=== PATIENT | female | born 1960 | race Caucasian/White ===

== ENCOUNTER 2020-09-02 08:18 | Outpatient (CLI) | payer OTHER, SELFPAY | END 2020-09-02 08:19 | disposition home or self-care (01) | LOC: ANHCOVIDVC 08:18 | PROVIDERS: PCP Family Medicine | DX: Z23 Encounter for immunization (principal) | CPT/HCPCS: 0001A; 91300 ==

== ENCOUNTER 2020-09-23 08:20 | Outpatient (CLI) | payer OTHER, SELFPAY | END 2020-09-23 08:21 | LOC: ANHCOVIDVC 08:20 | PROVIDERS: PCP Family Medicine | DX: Z23 Encounter for immunization (principal) | CPT/HCPCS: 0002A; 91300 ==

== ENCOUNTER 2023-04-18 10:11 | Outpatient (CLI) | payer OTHER, SELFPAY ==
[2023-04-18 12:46] LABS: Basophils Percent Auto 0.3 % (0.2-1.2); Eosinophils Absolute Auto 0.1 K/mm3 (0-0.3); Eosinophils Percent Auto 1.9 % (0-4.4); Hematocrit 42.6 % (37.0-47.0); Hemoglobin 13.4 g/dL (12.0-15.0); Immature Granulocyte Absolute 0.01 K/mm3 (0.00-0.031); Immature Granulocyte Percent A 0.2 % (0-0.5); Lymphocytes Absolute Auto 1.98 K/mm3 (0.9-3.2); Lymphocytes Percent Auto 32.1 % (18.3-44.2); Mean Corpuscular HGB Conc 31.5 g/dl (32-36); Mean Corpuscular Hemoglobin 29.5 pg (26-34); Mean Corpuscular Volume 93.6 fl (80-100); Mean Platelet Volume 11.3 fl (7.4-10.4); Monocytes Absolute Auto 0.6 K/mm3 (0.1-0.6); Monocytes Percent Auto 9.6 % (2.6-8.5); Neutrophils Absolute Auto 3.4 K/mm3 (1.3-6.7); Neutrophils Percent Auto 55.9 % (45.5-73.1); Platelet Count Result 200 k/mm3 (150-375); Red Blood Count 4.55 M/mm3 (4.2-5.4); Red Cell Distribution Width 11.9 % (11.5-14.5); White Blood Count 6.2 K/mm3 (4.5-10.0)
[2023-04-18 14:44] LABS: Alanine Aminotransferase 42 U/L (6-35); Albumin Level 4.4 g/dL (3.5-5.1); Alkaline Phosphatase 90 U/L (38-126); Anion Gap 7 mmol/L (8-16); Aspartate Amino Transferase 54 U/L (14-36); Bilirubin,Total 0.9 mg/dL (0.2-1.3); Blood Urea Nitrogen 20 mg/dL (7-17); Calcium 9.3 mg/dL (8.4-10.2); Carbon Dioxide 29 mmol/L (22-30); Chloride 102 mmol/L (98-107); Cholesterol 242 mg/dL (0-200); Estimated Glomerular Filt Rate > 60; Glucose 106 mg/dL (65-110); HDL Direct 54 mg/dL; Sodium 138 mmol/L (137-145); Triglycerides 163 mg/dL (<150)
[2023-04-18 14:55] LABS: LDL Cholesterol Direct 142 mg/dL
[2023-04-18 15:50] LABS: Hemoglobin A1C 5.4 % (<5.7)
== END 2023-04-18 10:12 | disposition home or self-care (01) ==
LOC: ANHGOSHLAB 10:13
PROVIDERS: PCP Family Medicine; Visit Provider Nurse Practitioner
DX: E78.00 Pure hypercholesterolemia, unspecified (principal); F41.1 Generalized anxiety disorder; I10 Essential (primary) hypertension; R73.03 Prediabetes
CPT/HCPCS: 36415; 80053; 80061; 83036; 84443; 85025

== ENCOUNTER 2024-05-07 11:10 | Outpatient (CLI) | payer OTHER, SELFPAY ==
[2024-05-07 15:04] LABS: Alanine Aminotransferase 28 U/L (6-35); Albumin Level 4.4 g/dL (3.5-5.1); Alkaline Phosphatase 84 U/L (38-126); Anion Gap 6 mmol/L (4-12); Aspartate Amino Transferase 41 U/L (14-36); Bilirubin,Total 0.9 mg/dL (0.2-1.3); Blood Urea Nitrogen 17 mg/dL (7-17); Calcium 9.4 mg/dL (8.4-10.2); Carbon Dioxide 33 mmol/L (22-30); Chloride 102 mmol/L (98-107); Cholesterol 241 mg/dL (0-200); Estimated Glomerular Filt Rate > 60; Glucose 102 mg/dL (65-110); HDL Direct 54 mg/dL; Potassium 3.9 mmol/L (3.4-5.0); Sodium 141 mmol/L (137-145); Triglycerides 189 mg/dL (<150)
[2024-05-07 15:15] LABS: LDL Cholesterol Direct 141 mg/dL
[2024-05-07 15:44] LABS: Vitamin D 25 Hydroxy 31.5 ng/mL
[2024-05-07 15:55] LABS: Hematocrit 41.3 % (37.0-47.0); Hemoglobin 13.5 g/dL (12.0-15.0); Mean Corpuscular HGB Conc 32.7 g/dl (32-36); Mean Corpuscular Hemoglobin 30.3 pg (26-34); Mean Corpuscular Volume 92.8 fl (80-100); Mean Platelet Volume 11.3 fl (7.4-10.4); Platelet Count Result 212 k/mm3 (150-375); Red Blood Count 4.45 M/mm3 (4.2-5.4); Red Cell Distribution Width 12.3 % (11.5-14.5)
[2024-05-07 16:09] LABS: Hemoglobin A1C 5.7 % (<5.7)
== END 2024-05-07 11:11 | disposition home or self-care (01) ==
LOC: ANHGOSHLAB 11:11
PROVIDERS: PCP Family Medicine; Visit Provider Nurse Practitioner
DX: Z00.00 Encounter for general adult medical examination without abnormal findings (principal); E78.00 Pure hypercholesterolemia, unspecified; R73.03 Prediabetes; E55.9 Vitamin D deficiency, unspecified
CPT/HCPCS: 36415; 80053; 80061; 82306; 83036; 84443; 85027

== ENCOUNTER 2024-09-23 10:02 | Outpatient (CLI) | payer OTHER, SELFPAY ==
--- OUTSIDE RECORDS SUMMARY | 2024-09-23 11:09 | XMS_ITS | Clinical Summary ---
Author Organization [facility] Estefania BULLARD C Address [address] [place] [address] Phone Care Team Providers Care Telemarketing Representative Name Role Phone Clinic, Pcp Primary Care Provider Unavailabl e Allergies Active Allergy Reactions Criticality Noted Date Comments Sulfa (Sulfonamide Antibiotics) Nausea only,Fatigue Low 11/17/2021 Medications valsartan (DIOVAN) 80 mg tablet take 1 tablet by oral route every day 0 [address] (CYMBALTA) 20 mg capsule take 1 capsule by oral route 2 times every day 0 2 Active multivitamin (ONCE DAILY) tablet tablet take 1 tablet by oral route every day with food 0 2 Active mupirocin (BACTROBAN) 2 % ointmentIndicat ions:Cellulitis of face Apply topically 3 (three) times a day 22 g 2 Active Active Problems Problem Noted Date Diagnosed Date Migraine 03/29/2012 Overview (09/30/2016): Migraine Medical History Medical History Date Comments Hypertension Hypertension Social History Tobacco Use Types Packs/Day Years Used Date Smoking Tobacco: Never Smokeless Tobacco: Never Alcohol Use Standard Drinks/Week Comments Yes 0 (1 standard drink = 0.6 oz pur e alcohol) Comments No Sex and Gender Information Value Date Recorded Sex Assigned at Not on file Legal Sex Female 2:08 AM RN CARDIOLOGY Gender Identity Not on file Sexual Orientation Not on file Obstetrics History Last Filed Vital Signs Vital Sign Reading Time Taken Comments Blood Pressure 120/79 11/17/2021 10:58 AM CDT Pulse 103 11/17/2021 10:58 AM CDT Temperature 37.1 C (98.7 F) 11/17/2021 10:58 AM CDT Respiratory Rate 16 11/17/2021 10:58 AM CDT Oxygen Saturation 98% 11/17/2021 10:58 AM CDT Inhaled Oxygen Concentration - - Weight 66.4 kg (146 lb 4.8 oz) 11/17/2021 10:58 AM CDT Height 162.6 cm (5' 4 ) 11/17/2021 10:58 AM CDT Body Mass Index 25.11 11/17/2021 10:58 AM CDT Plan of Treatment Health Maintenance Due Date Last Done Comments Colon Cancer Screening-Colonoscopy 1959 Depression Screening 1959 Fall Risk Assessment 1959 Hepatitis C Screening 1959 Osteoporosis Screening-Bone Density Scan 1959 DTaP/Tdap/Td Vaccine (1 - Tdap) 1970 Hepatitis B Screening 1977 Pneumococcal vaccine 65+ (1 of 1 - PCV) 2009 Zoster Vaccine (1 of 2) 2009 Breast Cancer Screening-Mammogram 03/11/2020 03/11/2019, 09/23/2015, 04/21/2014, Additional history exists Cervical Cancer Screening 03/20/2020 03/20/2019, Covid-19 Vaccine (3 - 2023-2 5 season) 2024 09/23/2020, 09/02/2020 Influenza Vaccine (#1) 2024 08/29/2019, 2014 Well Visit 65+ 2024 03/20/2019 Procedures Procedure Name Priority Date/Time Associated Diagnosis Comments PAP IG, HPV-HR Routine 03/20/2019 10:49 AM CDT Screening for malignant neoplasm of cervix SCREENING MAMMOGRAM BILATERAL W ADAM Schedule Routine, Read Routine (OP Routine) 03/11/2019 10:54 AM CDT Encounter for screening mammogram for malignant neoplasm of breast from Last 3 Months or Most Recently Relevant to Health Maintenance Results * Pap IG, HPV-hr (03/20/2019 10:49 AM CDT) Clinical indication Comment [facility] - 01 Comment:NEGATIVE FOR INTRAEP ITHELIAL LESION OR MALIGNANCY. Specimen adequacy: Comment [facility] - 01 Comment: Satisfactory for evaluation. Endocervical component may not be distinguished in cases of atrophy. Clinician provided ICD10 Comment [facility] - Comment:Z12.4 Performed by Comment [facility] - 01 Comment:Franck Spivey, Cyto technologist (ASCP) . . [facility] - 01 Note: Comment [facility] - 01 Comment: The Pap smear is a screening test designed to aid in the detection of premalignant and malignant conditions of the uterine cervix. It is not a diagnostic procedure and should not be used as the sole means of detecting cervical cancer. Both false-positive and false-negative reports do occur. Test methodology Comment [facility] - Comment: This liquid based ThinPrep(R) pap test was screened with the use of an image guided system. HPV, high-risk Negative Negative [facility] Comment: This high-risk HPV test detects thirteen high-risk types (16/18/31/33/35/39/45/51/52/56/58/59/68) without differentiation. Cervical 03/20/2019 10:4 9 AM CDT 03/20/2019 Narrative [facility] - 03/22/2019 3:08 PM CDT Performed at: - [facility] [id number] Web Site Administrator: Noemi Dominguez MD, Phone: [phone] Performed at: - [facility] [id number] Web Site Administrator: Noemi Dominguez MD, Phone: [phone] Specimen Comment: Source.............Cervix;Endocervix Specimen Comment: Other..............Post Menopausal Specimen Comment: No. of containers..01 ThinPrep Vial us Keanu Villarreal MD LAB PATHOLOGY ORDERABLES Final [facility] - 01 [facility] 02 * Screening Mammogram Bilateral W Adam (03/11/2019 10:54 AM CDT) Anatomical Region Laterality Modality Breast Bilateral Mammography Narrative 03/14/2019 8:32 AM CDT Screening Mammogram Bilateral W Adam: 03/11/19 Clinical: Encounter for screening mammogram for malignant neoplasm of breast. Prior Study Comparisons: Comparison was made to the prior available relevant studies at the time of interpretation. Findings: Bilateral No significant masses, malignant type calcifications, skin thickening, nipple retraction, or significant lymphadenopathy is noted in either breast. The CAD review showed no significant findings. The breasts have scattered areas of fibroglandular density. The patient will be notified of results by letter. Impression: BI-RADS ATLAS category (overall): 1 Negative There is no mammographic evidence of malignancy. Routine Screening Mammogram in 1 Yr is recommended for bilateral Overall Assessment: 1 - Negative us Self Screening Mammogram IMG MAMMO PROCEDURES Fi nal Result from Last 3 Months or Most Recently Relevant to Health Maintenance Insurance [facility] PLUS [facility] CHO[facility] PLUS Care Teams Telemarketing Representative Relationship Specialty Start Date End Date Clinic, Pcp PCP - General 02/20/19
--- OUTSIDE RECORDS SUMMARY | 2024-09-23 11:09 | XMS_ITS | Referral Summary ---
Author Organization [facility] Estefania BULLARD C Address [address] [place] [address] Phone Care Team Providers Care Retail Agent Name Role Phone Clinic, Pcp Primary Care [...] Diagnosed Date Migraine 03/29/2012 Overview (09/30/2016): Migraine Social History Tobacco Use Types Packs/Day Years Used Date Smoking Tobacco: Never Smokeless Tobacco: Never Alcohol Use Standard Drinks/Week Comments Yes 0 (1 standard drink = 0.6 oz pur e alcohol) Comments No Sex and Gender Information Value Date Recorded Sex Assigned at Not on file Legal Sex Female 2:08 AM TAG MAKER Gender Identity Not on file Sexual Orientation Not on file Last Filed Vital Signs Vital Sign Reading [...] 11/17/2021 10:58 AM CDT Plan of Treatment Not on file Procedures Procedure Name Priority Date/Time Associated Diagnosis [...] atrophy. Clinician provided ICD10 Comment [facility] - 01 Comment:Z12.4 Performed by Comment [facility] - 01 [...] do occur. Test methodology Comment [facility] - 01 Comment: This liquid based ThinPrep(R) pap test was screened with the use of an image guided system. HPV, high-risk Negative Negative [facility] 02 Comment: This high-risk HPV test detects thirteen high-risk types (16/18/31/33/35/39/45/51/52/56/58/59/68) without differentiation. Cervical 03/20/2019 10:4 9 AM CDT 03/20/2019 Narrative [facility] - 03/22/2019 3:08 PM CDT Performed at: - [facility] [id number] Bridge Rigger: Noemi Dominguez MD, Phone: [phone] Performed at: - [facility] [id number] Bridge Rigger: Noemi Dominguez MD, Phone: [phone] Specimen Comment: Source.............Cervix;Endocervix Specimen Comment: Other..............Post Menopausal Specimen Comment: No. of containers..01 ThinPrep Vial Keanu Villarreal MD LAB PATHOLOGY ORDERABLES Final Result [facility] 01 [facility] 02 * Screening [...] Most Recently Relevant to Health Maintenance Insurance [facility] CHOICE PLUS [facility] CHOICE PLUS Care Teams Retail Agent Relationship Specialty Start Date End Date Clinic, Pcp PCP - General 02/20/19
[2024-09-23 14:00] LABS: Cholesterol 213 mg/dL (0-200); HDL Direct 40 mg/dL; Triglycerides 154 mg/dL (<150)
[2024-09-23 14:11] LABS: LDL Cholesterol Direct 122 mg/dL
[2024-09-23 14:54] LABS: Hemoglobin A1C 5.5 % (<5.7)
== END 2024-09-23 10:03 | disposition home or self-care (01) ==
LOC: ANHGOSHLAB 10:02
PROVIDERS: PCP Family Medicine; Visit Provider Nurse Practitioner
DX: E78.00 Pure hypercholesterolemia, unspecified (principal); R73.03 Prediabetes
CPT/HCPCS: 36415; 80061; 83036